=== PATIENT | male | born 1980 | race African-American/Black ===

== ENCOUNTER 2018-09-11 20:33 | Emergency (ER) | payer OTHER ==
[2018-09-11 20:38] VITALS: BP 132/84; PULSE 98; TEMP 98.2; BMI 22.8
[2018-09-11] MEDS ORDERED: ALBUTEROL SO4 2.5/IPRATROPIUM 0.5 INH SOL 3 ML VIAL.NEB. NEB ONE ×2 (21:30→21:32)
--- NOTE | 2018-09-11 21:37 | PDOC ---
History of Present Illness - General Chief Complaint: Respiratory Stated Complaint: COUGH Time Seen by Provider: 09/11/18 21:21 History Source: Patient Exam Limitations: Clinical Condition - History of Present Illness Initial Comments: 09/11/18 21:31 Patient with no significant past medical history present with complaint of one- week history of persistent cough with yellow sputum and nasal congestion. Patient denies fever, chills, bodyaches. Patient reported using over-the- counter Delsym for cough with no improvement. Denies any other symptoms Timing/Duration: 1 week Past History - Past Medical History Allergies/Adverse Reactions: Allergies Allergy/AdvReac Type Severity Reaction Status Date / Time No Known Allergies Allergy Verified 09/11/18 20:38 Home Medications: Ambulatory Orders Bismuth Subsalicylate [Pepto-Bismol -] 524 mg PO ASDIR 01/23/16 Dicyclomine HCl [Bentyl] 20 mg PO Q6H #20 tablet 01/24/16 Ondansetron [Zofran *Odt*] 4 mg SL TID #30 od.tablet 01/24/16 Pantoprazole Sodium [Protonix] 40 mg PO DAILY #30 tablet. 01/24/16 Azithromycin [Zithromax 250mg Tablets -] 250 mg PO UTDICT #6 tab 09/11/18 Benzonatate [Tessalon Pearls -] 100 mg PO TID #21 capsule 09/11/18 Ipratropium Hardwick 2 spray NS BID PRN #1 spray 09/11/18 Methylprednisolone [Medrol Dose Christopher] 4 mg PO ASDIR #21 tablet 09/11/18 COPD: No - Suicide/Smoking/Psychosocial Hx Smoking Status: No Smoking History: Never smoked Number of Cigarettes Smoked Daily: 0 Review of Systems - Review of Systems Able to Perform ROS?: Yes Is the patient limited Italian proficient: No Constitutional: No: Chills, Fever, Malaise HEENTM: Yes: Symptoms Reported, See HPI, Nose Congestion. No: Eye Pain, Blurred Vision, Tearing, Recent change in vision, Double Vision, Cataracts, Ear Pain, Ocular Prothesis, Ear Discharge, Nose Pain, Tinnitus, Nose Bleeding, Hearing Loss, Throat Pain, Throat Swelling, Mouth Pain, Dental Problems, Difficulty Swallowing, Mouth Swelling, Other Respiratory: Yes: Symptoms reported, See HPI, Cough, Productive cough (yellow sputum). No: Orthopnea, Shortness of Breath, SOB with Exertion, SOB at Rest, Stridor, Wheezing, Hemoptysis, Other Cardiac (ROS): No: Symptoms Reported, See HPI, Chest Pain, Edema, Irregular Heart Rate, Lightheadedness, Palpitations, Syncope, Chest Tightness, Other ABD/GI: No: Nausea, Vomiting All Other Systems: Reviewed and Negative *Physical Exam - Vital Signs Last Vital Signs Temp Pulse Resp BP Pulse Ox 98.2 F 98 H 18 132/84 97 09/11/18 20:36 09/11/18 20:36 09/11/18 20:36 09/11/18 20:36 09/11/18 20:36 - Physical Exam Comments: 09/11/18 21:32 GENERAL: Well developed, well nourished. Awake and alert. No acute distress. Patient coughing throughout exam HEENT: Normocephalic, atraumatic. PERRLA, EOMI. No conjunctival pallor. Sclera are non-icteric. Moist mucous membranes. Oropharynx is clear. NECK: Supple. Full ROM. CARDIOVASCULAR: Regular rate and rhythm. No murmurs, rubs, or gallops. Distal pulses are 2+ and symmetric. PULMONARY: No evidence of respiratory distress. Lungs clear to auscultation bilaterally. No wheezing, rales or rhonchi. ABDOMINAL: Soft. Non-tender. Non-distended. No rebound or guarding. No organomegaly. Normoactive bowel sounds. MUSCULOSKELETAL Normal range of motion at all joints. SKIN: Warm and dry. No cyanosis. Normal capillary refill. No rashes. No jaundice. NEUROLOGICAL: Alert, awake, appropriate. Gait is normal without ataxia. PSYCHIATRIC: Cooperative. Good eye contact. Appropriate mood General Appearance: Yes: Nourished, Appropriately Dressed. No: Apparent Distress Moderate Sedation - Procedure Monitoring Vital Signs: Procedure Monitoring Vital Signs Temperature 98.2 F 09/11/18 20:36 Pulse Rate 98 H 09/11/18 20:36 Respiratory Rate 18 09/11/18 20:36 Blood Pressure 132/84 09/11/18 20:36 O2 Sat by Pulse Oximetry (%) 97 09/11/18 20:36 Medical Decision Making - Medical Decision Making 09/11/18 21:33 A show with no significant past medical history present with complaint of one- week history of URI symptoms with yellow productive cough and no fevers area and patient is not a current smoker. Exam significant for patient coughing throughout exam with lungs clear to auscultation bilateral. No acute respiratory distress and exam. Symptoms likely bronchitis versus pneumonia versus viral URI. Pneumonia less likely given no fever. Patient is stable for outpatient management for bronchitis with Tessalon Perles and prednisone for cough and Z-Christopher antibiotics with pulmonology follow- up. *DC/Admit/Observation/Transfer Diagnosis at time of Disposition: Bronchitis URI (upper respiratory infection) Qualifiers: URI type: unspecified URI Qualified Code(s): J06.9 - Acute upper respiratory infection, unspecified - Discharge Dispostion Disposition: HOME Condition at time of disposition: Stable Decision to Admit order: No - Prescriptions Prescriptions: Azithromycin [Zithromax 250mg Tablets -] 250 mg PO UTDICT #6 tab Benzonatate [Tessalon Pearls -] 100 mg PO TID #21 capsule Ipratropium Hardwick 2 spray NS BID PRN #1 spray PRN Reason: nasal congestion Methylprednisolone [Medrol Dose Christopher] 4 mg PO ASDIR #21 tablet - Referrals Referrals: Baron Sanchez MD [Staff Physician] - - Patient Instructions Printed Discharge Instructions: DI for Acute Bronchitis Additional Instructions: Take medication as prescribed. Increase fluid intake. Follow-up referred pulmonology if no improvement in 3 days. - Post Discharge Activity
== END 2018-09-11 22:06 | disposition home or self-care (01) ==
LOC: JERFT 20:33
PROC: 3E0F7GC Introduction of Other Therapeutic Substance into Respiratory Tract, Via Natural or Artificial Opening (ICD-10-PCS; principal; 2018-09-11)
DX: J40 Bronchitis, not specified as acute or chronic (principal)
CPT/HCPCS: 94640; 99281-25